=== PATIENT | female | born 1980 | race Caucasian/White ===

== ENCOUNTER → 2017-02-06 | Outpatient (REF) | payer OTHER ==
[~2017-02-06] MED LIST: MULT1TAB10 PO
== END ==
LOC: M LAB REF 16:48
PROVIDERS: ATTEND Advanced Practice Midwife
DX: N91.1 Secondary amenorrhea (principal)

== ENCOUNTER → 2017-02-09 | Outpatient (REF) | payer OTHER | LOC: M LAB REF 18:44 | PROVIDERS: ATTEND Advanced Practice Midwife | DX: N91.1 Secondary amenorrhea (principal) ==

== ENCOUNTER → 2017-02-13 | Day surgery (SDC) | payer OTHER ==
[~2017-02-13] VITALS: Ht 167.6 cm; Wt 58.2 kg
[~2017-02-13] MED LIST changes: +KETOROLAC 30 MG/ML VIAL (J1885) As Ordered ONE; +KETOROLAC 30 MG/ML VIAL (J1885) IV PRN; +KETOROLAC 30 MG/ML VIAL (J1885) IV SCH; +LIDOCAINE 1% MDV 20ML VIAL As Ordered ONE; +LR 1,000 ML IV ONE; +LR 1,000 ML IV SCH; +MIDAZOLAM INJ 2 MG/2 ML VIAL (J2250) As Ordered ONE; +ONDANSETRON 4MG/2ML VIAL (J2405) As Ordered ONE; +ONDANSETRON 4MG/2ML VIAL (J2405) IV PRN; +PERCOCET 5MG/325MG TAB PO PRN; +PROPOFOL 200 MG/20 ML VIAL As Ordered ONE; +fentaNYL 100 MCG/2 ML INJECTION (J3010) As Ordered ONE; +fentaNYL 100 MCG/2 ML INJECTION (J3010) IV PRN
[2017-02-13 18:19] LABS: MEAN CORPUSCULAR HEMOGLOBIN 34.3 pg (27.0-33.0); MEAN CORPUSCULAR HGB CONC 35.1 g/dl (32.0-36.5); MEAN CORPUSCULAR VOLUME 97.6 fl (80.0-96.0); RED CELL DISTRIBUTION WIDTH 11.9 % (11.5-14.5)
[2017-02-13 20:35] VITALS: BP 115/75
--- NOTE | 2017-02-14 07:49 | RO ---
DATE OF PROCEDURE: 02/13/2017 PREOPERATIVE DIAGNOSIS: Intrauterine embryonic demise. POSTOPERATIVE DIAGNOSIS: Intrauterine embryonic demise. PROCEDURE: Dilation with sharp suction and curettage. SURGEON: Brittany Vicente MD [employer] OPERATOR: None. ANESTHESIA: General anesthesia via laryngeal mask airway. ESTIMATED BLOOD LOSS: 10 mL INTRAVENOUS FLUIDS: 400 mL URINE OUTPUT: 50 mL. SPECIMENS: Intrauterine contents. DESCRIPTION OF OPERATION: After informed consent was obtained and written consent was reviewed, the patient was taken to the operating room where general endotracheal anesthesia was obtained. She was then placed in lithotomy position, was prepped and draped in normal sterile fashion. A time-out in the operating room was then performed identifying the patient, procedure to be performed as well as drug allergies. A bivalve speculum was then placed revealing the cervix. The anterior lip of the cervix was grasped with a single-tooth tenaculum. The uterus was then sounded to 11 cm. It was then sequentially dilated using Hanks dilators. A #8 suction curette was then advanced through the cervical os to the level of the fundus. This was attached to suction. Suction was deployed. The uterus was curetted in a 360 degree fashion. Moderate amounts of tissue was then obtained. The suction curette was then removed. A sharp curet was then advanced into the cervical os to the level of the fundus and the uterus was curetted in a 360 degree fashion. A second pass of the suction curette was then performed productive of minimal amounts of blood. The instruments were then removed from the patient's vagina. The single-tooth tenaculum was removed. Tenaculum sites were noted to be hemostatic. The speculum was removed. In and out catheter was then performed productive of 50 mL of clear urine. The patient was then taken out of lithotomy position, was awakened from general anesthesia, taken to recovery in stable condition.
== END ==
LOC: M SDC 15:39
PROVIDERS: ATTEND Obstetrics & Gynecology
DX: O02.1 Missed abortion (principal); Z91.013 Allergy to seafood; Z88.0 Allergy status to penicillin
CPT/HCPCS: 36415; 59820; 85027; 86850; 86900; 86901; 88305; J1885; J2250; J2405; J3010

== ENCOUNTER 2017-05-25 10:41 | Emergency (ER) | payer OTHER ==
[~2017-05-25] VITALS: Ht 167.6 cm; Wt 59.1 kg
[~2017-05-25 10:41] MED LIST changes: -KETOROLAC 30 MG/ML VIAL (J1885) As Ordered ONE; -KETOROLAC 30 MG/ML VIAL (J1885) IV PRN; -KETOROLAC 30 MG/ML VIAL (J1885) IV SCH; -LIDOCAINE 1% MDV 20ML VIAL As Ordered ONE; -LR 1,000 ML IV ONE; -LR 1,000 ML IV SCH; -MIDAZOLAM INJ 2 MG/2 ML VIAL (J2250) As Ordered ONE; -ONDANSETRON 4MG/2ML VIAL (J2405) As Ordered ONE; -ONDANSETRON 4MG/2ML VIAL (J2405) IV PRN; -PERCOCET 5MG/325MG TAB PO PRN; -PROPOFOL 200 MG/20 ML VIAL As Ordered ONE; -fentaNYL 100 MCG/2 ML INJECTION (J3010) As Ordered ONE; -fentaNYL 100 MCG/2 ML INJECTION (J3010) IV PRN
[2017-05-25 11:47] LABS: BASO % 0.2 % (0.0-1.0); EOS # 0.3 K/mm3 (0.0-0.50); EOS % 2.2 % (0.0-3.0); LARGE UNSTAINED CELL # 0.2 K/mm3 (0.0-0.4); LARGE UNSTAINED CELL % 1.2 % (0.0-4.0); LYMPH # 2.2 K/mm3 (1.5-4.5); LYMPH % 16.7 % (24.0-44.0); MEAN CORPUSCULAR HEMOGLOBIN 34.1 pg (27.0-33.0); MEAN CORPUSCULAR HGB CONC 34.4 g/dl (32.0-36.5); MEAN CORPUSCULAR VOLUME 99.2 fl (80.0-96.0); MONO # 0.5 K/mm3 (0.0-0.8); MONO % 3.9 % (0.0-5.0); NEUTROPHILS # 9.5 K/mm3 (1.8-7.7); NEUTROPHILS % 75.8 % (36.0-66.0); PLATELET COUNT, AUTOMATED 260 k/mm3 (150-450); RED CELL DISTRIBUTION WIDTH 12.2 % (11.5-14.5); WHITE BLOOD COUNT 12.5 K/mm3 (4.0-10.0)
[2017-05-25 11:57] LABS: CONTROL LINE HCG INT CTR LINE PRESENT
[2017-05-25 12:08] LABS: ALBUMIN/GLOBULIN RATIO 1.03 (1.00-1.93); ALKALINE PHOSPHATASE 48 U/L (45-117); ALT/SGPT 13 U/L (12-78); ANION GAP 8 MEQ/L (8-16); AST/SGOT 23 U/L (15-37); BILIRUBIN,TOTAL 0.8 MG/DL (0.2-1.0); BLOOD UREA NITROGEN 6 MG/DL (7-18); CALCIUM LEVEL 9.4 MG/DL (8.5-10.1); CARBON DIOXIDE LEVEL 28 MEQ/L (21-32); CHLORIDE LEVEL 102 MEQ/L (98-107); CREATININE FOR GFR 0.76 MG/DL (0.55-1.02); GLOMERULAR FILTRATION RATE > 60.0 (>60); GLUCOSE, FASTING 87 MG/DL (70-105); HCG, SERUM QUANTITATIVE 58 MIU/ML; POTASSIUM SERUM 4.7 MEQ/L (3.5-5.1); SODIUM LEVEL 138 MEQ/L (136-145); TOTAL PROTEIN 7.9 GM/DL (6.4-8.2)
[2017-05-25 12:36] LABS: CALCIUM OXALATE CRYSTALS MODERATE
[2017-05-25] MEDS ORDERED: NITROFURANTOIN (MACROBID) 100 MG CAP PO ONE (12:45)
[2017-05-25] MEDS ORDERED: PHENAZOPYRIDINE 100 MG TAB PO ONE (13:00)
[2017-05-25] MEDS ORDERED: MACR100C43 PO (14:17)
[2017-05-25] MEDS ORDERED: PYRI1TAB5 PO (14:18)
--- NOTE | 2017-05-25 14:19 | REP ---
OBSTETRIC SONOGRAPHY: HISTORY: Possible spontaneous . Less than 1 month gestation. No comparison imaging. FINDINGS: Transabdominal and transvaginal scanning demonstrates uterine dimensions of 8.1 x 3.6 x 4.9 cm. Endometrial echo is 1.5 cm thick. No intrauterine gestation is seen. There is a small quantity of free fluid in the cul-de-sac. Left ovary has a normal appearance with dimensions of 2.7 x 2.1 x 2.6 cm. Its Doppler flow is normal, resistive index 0.57. There is a 2.8 x 2.6 x 2.7 cm hypoechoic cyst in the right ovary which could be a corpus luteum or hemorrhagic cyst. Right ovarian dimensions inclusive of this are 4.5 x 3.1 x 4.0 cm. Its Doppler flow is normal, resistive index 0.7. IMPRESSION: Empty uterus and no intrauterine gestation seen. 2.8 cm hypoechoic cystic area right ovary could be corpus luteum or hemorrhagic cyst. A small quantity of free fluid. Nonspecific sonographic findings. Clinical and possibly sonographic followup suggested. Signed by Dallas Salinas MD 05/25/2017 02:49 P
[2017-05-25 14:27] VITALS: BP 127/84
== END 2017-05-25 14:35 | disposition home or self-care (01) ==
LOC: M ED 11:30
DX: O23.11 Infections of bladder in pregnancy, first trimester (principal); B96.20 Unspecified Escherichia coli [E. coli] as the cause of diseases classified elsewhere; O34.81 Maternal care for other abnormalities of pelvic organs, first trimester; N83.291 Other ovarian cyst, right side; Z79.899 Other long term (current) drug therapy; Z91.013 Allergy to seafood; Z3A.01 Less than 8 weeks gestation of pregnancy

== ENCOUNTER → 2017-06-01 | Outpatient (CLI) | payer OTHER ==
[~2017-06-01] MED LIST changes: +MACR100C43 PO; +PYRI1TAB5 PO
== END ==
LOC: M WUC 09:42
PROVIDERS: ATTEND Obstetrics & Gynecology
DX: O02.1 Missed abortion (principal)